=== PATIENT | male | born 1955 | race Caucasian/White ===

== ENCOUNTER 2017-10-31 11:24 | Emergency (ER) | payer MEDICAID ==
[~2017-10-31] VITALS: Ht 170.2 cm; Wt 75.4 kg
[2017-10-31 11:29] VITALS: BP 131/75
--- NOTE | 2017-10-31 11:38 | NUR ---
62Y/M BIB SELF C/O INTERMITTENT LT LOWER BACK PAIN X 3 RADIATING TO LT ABDOMEN SINCE THURSDAY; DENIES INJURY, NVD. SKIN IS PINK/WARM/DRY; AAOX4 WITH EVEN AND STEADY GAIT; PATIENT STATES PAIN OF 7/10 AT THIS TIME; VSS; PATIENT POSITIONED FOR COMFORT; HOB ELEVATED; BEDRAILS UP X 1; BED DOWN. ER MD MADE AWARE OF PT STATUS.
[2017-10-31 12:20] LABS: APPEARANCE,URINE CLEAR (CLEAR); BILIRUBIN,URINE NEGATIVE (NEGATIVE); BLOOD, URINE 1+ (NEGATIVE); COLOR,URINE YELLOW (YELLOW); LEUKOCYTE ESTERASE ,URINE NEGATIVE (NEGATIVE); NITRITE, URINE NEGATIVE (NEGATIVE); UGLUCOSE NEGATIVE (NEGATIVE)
[2017-10-31 12:21] LABS: BASOPHILS % (AUTO) 0.6 % (0.0-2.0); EOSINOPHILS # (AUTO) 0.1 K/uL (0-0.4); EOSINOPHILS % (AUTO) 1.4 % (0.0-4.0); HEMOGLOBIN 14.4 g/dL (12.0-18.0); LYMPHOCYTES # (AUTO) 2.2 K/uL (2.0-11.5); LYMPHOCYTES % (AUTO) 26.6 % (20.5-51.1); MEAN CORPUSCULAR HEMOGLOBIN 28 pg (27-31); MEAN CORPUSCULAR HGB CONC 33 g/dL (33-37); MEAN CORPUSCULAR VOLUME 85.8 fL (80-94); MONOCYTES # (AUTO) 0.6 K/uL (0.8-1.0); MONOCYTES % (AUTO) 7.7 % (1.7-9.3); NEUTROPHILS # (AUTO) 5.2 K/uL (1.8-7.7); NEUTROPHILS % (AUTO) 63.7 % (42.2-75.2); PLATELET COUNT (AUTO) 230 K/uL (140-450); RED BLOOD CELL COUNT(AUTO) 5.12 MIL/uL (4.20-6.10); RED CELL DISTRIBUTION WIDTH 14.5 % (11.6-13.7); WHITE BLOOD COUNT (AUTO) 8.2 K/uL (4.8-10.8)
[2017-10-31 12:33] LABS: ALBUMIN 4.1 g/dL (3.4-5.0); ANION GAP 12.2 (8-16); CARBON DIOXIDE 28.7 mmol/L (21-32); CREATININE 1.1 mg/dL (0.7-1.3); POTASSIUM 3.9 mmol/L (3.5-5.1); TOTAL BILIRUBIN 0.4 mg/dL (0.0-1.0)
[2017-10-31 12:50] LABS: RBC,URINE 0-5 (RARE) /HPF (0-5); WBC,URINE 0-5 (RARE) /HPF (0-5)
--- NOTE | 2017-10-31 15:15 | NUR ---
continues to wait for dispo---admits pain is very light at this time 07/01 will continue to observe for pain control
--- NOTE | 2017-10-31 15:42 | NUR ---
Patient discharged with v/s stable. Written and verbal after care instructions given and explained. Patient alert, oriented and verbalized understanding of instructions. Ambulatory with steady gait. All questions addressed prior to discharge. ID band removed. Patient advised to follow up with PMD. Rx of NORCO, MOTRIN, AND FLOMAX given. Patient educated on indication of medication including possible reaction and side effects. Opportunity to ask questions provided and answered.
[2017-10-31 15:43] VITALS: BP 124/71
== END 2017-10-31 15:42 | disposition home or self-care (01) ==
LOC: MED 11:24
DX: N13.2 Hydronephrosis with renal and ureteral calculous obstruction (principal)
CPT/HCPCS: 36415; 80053; 81001; 84484; 85025; 99285

== ENCOUNTER 2017-11-11 10:45 | Emergency (ER) | payer MEDICAID ==
[~2017-11-11] VITALS: Ht 172.7 cm; Wt 77.1 kg
[2017-11-11 10:55] VITALS: BP 158/85
[2017-11-11 11:46] LABS: APPEARANCE,URINE SL CLOUDY (CLEAR); BILIRUBIN,URINE NEGATIVE (NEGATIVE); BLOOD, URINE 3+ (NEGATIVE); COLOR,URINE YELLOW (YELLOW); LEUKOCYTE ESTERASE ,URINE NEGATIVE (NEGATIVE); NITRITE, URINE NEGATIVE (NEGATIVE); UGLUCOSE NEGATIVE (NEGATIVE)
[2017-11-11 11:59] LABS: RBC,URINE TOO NUMEROUS TO COUN /HPF (0-5)
[2017-11-11 12:00] LABS: WBC,URINE 0-5 (RARE) /HPF (0-5)
[2017-11-11 12:45] VITALS: BP 149/81
== END 2017-11-11 12:46 | disposition home or self-care (01) ==
LOC: MED 10:45
DX: N13.2 Hydronephrosis with renal and ureteral calculous obstruction (principal); R31.9 Hematuria, unspecified; Z90.89 Acquired absence of other organs
CPT/HCPCS: 74018; 76770; 81001; 99285; Q0092

== ENCOUNTER 2019-10-22 14:46 | Emergency (ER) | payer MEDICAID, OTHER ==
[~2019-10-22] VITALS: Ht 172.7 cm; Wt 79.4 kg
[2019-10-22 14:51] VITALS: BP 108/65
--- NOTE | 2019-10-22 15:05 | NUR ---
PT WALK TO BED 07.
--- NOTE | 2019-10-22 15:08 | NUR ---
PT REPORTS HE WENT TO HIS PCP 3 MONTHS AGO FOR A PROSTATE EXAM AND DISCOVERED HE HAS A LARGE PROSTATE. 2 WEEKS AGO PATIENT BEGAN FEELING LOWER BACK DISCOMFORT IN [place] AREA. DENIES ANY RECENT INJURY . PT AWAKE , ALERT, AFIBRILE , AMBULATORY WITH STEADY GAIT. NO PMH NKA
--- NOTE | 2019-10-22 15:28 | NUR ---
DR SNOW AT BEDSIDE EVALUATING PT.
[2019-10-22] MEDS ORDERED: ACETAMINOPHEN EXTRA STRENGTH 500 MG TAB PO ONE (15:30)
--- NOTE | 2019-10-22 15:51 | NUR ---
PT TO XRAY VIA WHEELCHAIR.
--- NOTE | 2019-10-22 16:02 | NUR ---
PT BACK FROM XRAY.
--- NOTE | 2019-10-22 16:26 | NUR ---
pt comfortable in bed , awake ,alert. side rail up x1 and lock.
--- NOTE | 2019-10-22 17:28 | NUR ---
DR SNOW AT BEDSIDE REEVALUTING PT.
--- NOTE | 2019-10-22 18:45 | NUR ---
NADR, PAIN 0/10
[2019-10-22 18:46] VITALS: BP 122/74
--- NOTE | 2019-10-22 18:46 | NUR ---
Patient discharged with v/s stable. Written and verbal after care instructions given and explained REGARDING HEMATURIA, BACK PAIN, AND PROSTATE ISSUES. Patient alert, oriented and verbalized understanding of instructions. Ambulatory with steady gait. All questions addressed prior to discharge. ID band removed. Patient advised to follow up with PMD. Rx of KEFLEX AND NAPROSYN given. Patient educated on indication of medication including possible reaction and side effects. Opportunity to ask questions provided and answered. INSTRUCTED TO FOLLOW UP WITH [facility] IN 2-3 DAYS, DR DAS
== END 2019-10-22 18:46 | disposition home or self-care (01) ==
LOC: MED 14:46
DX: N39.0 Urinary tract infection, site not specified (principal); M54.5 Low back pain; R31.29 Other microscopic hematuria; Z90.49 Acquired absence of other specified parts of digestive tract
CPT/HCPCS: 72100; 81002; 99283